=== PATIENT | female | born 1995 | race African-American/Black ===

== ENCOUNTER 2018-06-29 03:35 | Emergency (ER) | payer BC, OTHER ==
[~2018-06-29] VITALS: Ht 170.2 cm; Wt 73.0 kg
[2018-06-29] MEDS ORDERED: KETOROLAC 60MG/2ML VIAL IM ONE (05:15)
[2018-06-29 05:21] LABS: CLARITY URINE CLEAR (CLEAR); COLOR URINE YELLOW (YELLOW); KETONES URINE 1+ (NEGATIVE); LEUKOCYTE ESTERASE URINE TRACE (NEGATIVE); NITRITE URINE NEGATIVE (NEGATIVE); OCCULT BLOOD URINE NEGATIVE (NEGATIVE); PH URINE 8.5 (4.5-8.0); PROTEIN URINE NEGATIVE (NEGATIVE); SPECIFIC GRAVITY URINE 1.021 (1.005-1.030)
[2018-06-29 07:00] VITALS: BP 89/44
== END 2018-06-29 07:00 | disposition home or self-care (01) ==
LOC: ER 03:35
DX: N12 Tubulo-interstitial nephritis, not specified as acute or chronic (principal); R06.02 Shortness of breath; R03.0 Elevated blood-pressure reading, without diagnosis of hypertension
CPT/HCPCS: 71045; 81003; 81025; 96372; 99285; J1885; Z7610